=== PATIENT | male | born 1985 | race Caucasian/White ===

== ENCOUNTER 2024-03-19 09:37 | Outpatient (CLI) | payer OTHER, SELFPAY ==
--- NOTE | ~2024-03-19 | US_ITS ---
EXAMINATION: US abdomen limited DATE: 03/19/2024 10:19 INDICATION: Epigastric abdominal pain. TECHNIQUE: Multiple grayscale and Doppler ultrasound images of the abdomen were obtained. COMPARISON: None FINDINGS: The visualized portions of the head and body of the pancreas are normal. There is diffuse h epatic steatosis. There is normal flow in main portal vein. The gallbladder is normal in size. No gal lstones or gallbladder wall thickening. There is no sonographic Alanis's sign. The common duct is nor mal and measures 4 mm. IMPRESSION: 1. Diffuse hepatic steatosis. Reviewed, dictated and finalized at location A. LATORY ATTORNEY
== END 2024-03-19 09:38 | disposition home or self-care (01) ==
LOC: ANHIMG 09:41
DX: K76.0 Fatty (change of) liver, not elsewhere classified (principal)
CPT/HCPCS: 76705

== ENCOUNTER 2024-12-17 00:51 | Day surgery (SDC) | payer OTHER, SELFPAY ==
--- OUTSIDE RECORDS SUMMARY | 2024-11-03 07:15 | XMS_ITS | Continuity of Care Document ---
Author Organization [facility] Address [address] [place] [address] [place] [address] Phone Care Team Providers Care Procurement Intern Name Role Phone Didier Mendez MD Unavailable Unavailable Allergies, Adverse Reactions, Alerts Substance Reaction Status Criticality No Known Allergies Active No Inform ation Medications Medication Instructions Dosage Effective Dates (start - stop) Status Comments Crestor 10 mg tablet take 1 tablet by or al route every day 10 MG - Active Protonix 40 mg tablet,delayed release take 1 tablet by oral route every day 40 MG - Active Procedures Procedure Date OFFICE/OUTPATIENT VISIT, EST PREV VISIT, NEW, AGE 18-39 OFFICE/OUTPATIENT VISIT, NEW Advance Directives Directive Yes / No Effective Date File Name No Information Encounters Encounter Description Practice Location Reason(s) For Visit Diagnoses Date Provider Providers Copied on Encounter OFFICE/OUTPA TIENT VISIT, EST [facility], [address] [place], [id number], [place] tel:[phone] [facility] HLP (chief complaint) bili (chief complaint) GERD1 (chief complaint) Mixed hyperlipidemiaGERD w/o esophagitisDisorder of bilirubin metabolism, unspecified 5 Andrea Velásquez. [address] [facility] [address], [place], [place], [id number] , [place]. tel:[phone] PREV VISIT, NEW, AGE 18-39 [facility], [address], [place], [place], [id number], [place] tel:[phone] [facility] physical (chief complaint) Encounter for general adult medical exam w abnormal findingsGERD w/o esophagitis Andrea Velásquez. [address], [place], [place], [id number] , [place]. tel:[phone] Family History Family Member Type Diagnosis Age At Onset Father Problem Alive and well Mother Problem Hypertension Sister Problem Alive and well Payers Payer name Insurance type Covered libertarian ID Johann clemons(s) [facility] [id number] Social History Type Description Quantity Date Captured Comments Alcohol Use Details No Caffeine Use Details Unknown Tobacco Use Status Current non-smoker Smoking Status Never smoker Sex Male Vital Signs Date / Time: Height Weight BMI Pulse Rate Blood Pressure Temperature Respiratory Rate Body Surface Area Head Circumference BMI percentile Pulse Ox Inhaled Ox 12:32 PM 69.00 in 203.00 lbs 29.9 8 kg/m eter (2) 83 /min 110/64 mm[Hg] 97.9 F 16 /min Chief Complaint And Reason For Visit From encounter dated '11/03/2024 12:15'. HLP (chief complaint). Description: Pt has HLP. Pt has high TG and lipid. Pt is not on any diet. bili (chief complaint). Description: Pt has mildly high bili Pt denies any abd pain or jaundice. GERD1 (chief complaint). Description: Pt has chronic GERd and dysphagia Pt is on protonix and he feels slightly better Pt has EGD scheduled in December Pt denies any nausea, vomiting Plan Of Treatment Date Type Action Status Referral Ordered: ESOPHAGUS ENDOSCOPY ordered Appointment Carlitos Jones BOOKED History Of Present Illness Encounter Date Complaint History Of Prese nt Illness GERD1 Pt has chronic G ERd and dysphagia Pt is on protonix and he feels slightly better Pt has EGD scheduled in December Pt denies any nausea, vomiting bili Pt has mildly hi gh bili Pt denies any abd pain or jaundice. HLP Pt has HLP. Pt h as high TG and lipid. Pt is not on any diet. physical Pt needs annual physical Pt denies any dysphagia. pt denies any nausea, vomiting Pt denies any abd pain Pt notices food stuck in the middle of chest area after swallowing, especially pasta, spicy food or meat. pt has mild acidy feeling around stomach if he does not eat for a while. pt denies any diarrhea or constipation. Pt denies any weight loss. Pt denies any early satiety or loss of appetite. Pt denies any other complaints . pt denies any sore throat. Pt states that above symptoms has been occurring since two years ago. Instructions Date Instruction Additional Infor mation No Information Assessments Type Assessment Date assessment Mixed hyperlipidemia assessment GERD w/o esophagitis assessment Disorder of bilirubin metabolism , unspecified Mental Status Date Cognitive Assessment Orientation - [place] ed to time, place, person, situation.
[2024-12-08 09:48] VITALS: BMI 29.6
--- OUTSIDE RECORDS SUMMARY | 2024-12-17 00:53 | XMS_ITS | Clinical Summary ---
Author Organization [facility] e Address [address] [place] [address] Care Team Providers Care Structural Analysis Engineer Name Role Phone Suleman Huston MD Primary Care Provider [phone] Allergies No known active allergies Medications No known medications Active Problems No known active problems Immunizations Immunization Administration Dates Next Due (ADACEL/BOOSTRIX)(10 YR UP) TDAP VACCINE, 0.5ML, IM 03/27/2019 Family History Medical History Relation Name Comments No Known Problems Father No Known Problems Mother No Known Problems Sister Relation Name Status Comments Father Alive Mother Alive Sister Alive Social History Tobacco Use Types Packs/Day Years Used Date Smoking Tobacco: Never Smokeless Tobacco: Never Tobacco Cessation:Counseling Given: Not Answered Alcohol Use Standard Drinks/Week Comments Yes 0 (1 standard drink = 0.6 oz pur e alcohol) Rare Sex and Gender Information Value Date Recorded Sex Assigned at Not on file Legal 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 Gender Identity Not on file Sexual Orientation Not on file Last Filed Vital Signs Vital Sign Reading Time Taken Comments Blood Pressure 116/72 06/26/2022 1:08 PM CDT Pulse 104 06/26/2022 1:08 PM CDT Temperature 36.3 C (97.4 F) 06/26/2022 1:08 PM CDT Respiratory Rate 14 02/12/2022 2:57 PM FORMULA WEIGHER Oxygen Saturation 98% 06/26/2022 1:08 PM CDT Inhaled Oxygen Concentration - - Weight 93.9 kg (207 lb) 06/26/2022 1:08 PM CDT Height 177.8 cm (5' 10) 06/26/2022 1:08 PM CDT Body Mass Index 29.7 06/26/2022 1:08 PM CDT Plan of Treatment Health Maintenance Due Date Last Done Comments HEPATITIS B VACCINES (1 of 3 - 19+ 3-dose series) 2005 HPV VACCINES (1 - 3-dose SCDM series) 2013 Preventative Visit- Commercial 04/08/2024 01/11/2022 , 03/27/2019 INFLUENZA VACCINE (#1) 2024 05/15/2022 DTAP/TDAP/TD VACCINES (2 - Td or Tdap) 03/27/2029 Insurance [employer] [id number] Care Teams Structural Analysis Engineer Relationship Specialty [place] [id number] [facility] [address] [place] [id number] PCP - General Internal Medicine 01/12/22
[2024-12-17] MEDS: LACTATED RINGERS 1,000 ML 150 ML IV CONT (11:57)
[2024-12-17 11:59] VITALS: BP 121/87; PULSE 90; RESP 19; TEMP 36.5; O2SAT 99; BMI 30.6
--- NOTE | 2024-12-17 12:18 | WPDANESEPPF ---
Anes - Initial Pre Proc Eval Procedure: Operation Date: 12/17/24 12:30 Proposed Procedures p Esophagogastroduodenoscopy - Raji Manzanares MD Date/Time: 12/17/24 12:18 Surgeon: Raji Manzanares MD Pre Op Diagnosis: Gastro-esophageal reflux disease without esophagit Patient Data Age: 39 Gender: M Height: 1.75 m Weight: 94 kg Last Vital Signs Temp 36.5 C 12/17/24 11:59 Pulse 90 12/17/24 11:59 Resp 19 12/17/24 11:59 BP 121/87 12/17/24 11:59 Pulse Ox 99 12/17/24 11:59 O2 Del Method Room Air 12/17/24 11:59 Allergies Allergy/AdvReac Type Severity Reaction Status Date / Time No Known Allergies Allergy Verified 12/17/24 11:58 Home Medications ?Medication ?Instructions ?Recorded ?Confirmed ?Type pantoprazole 40 mg tablet,delayed 40 mg PO DAILY 12/08/24 12/17/24 History release rosuvastatin 10 mg tablet (Crestor) 10 mg PO DAILY 12/08/24 12/17/24 History Patient hx anesthesia problems: none Family hx anesthesia problems: none Results Review: All pre-operative results and documents have been reviewed as part of the pre-operative evaluation. [facility] Past Medical History Medical History (Updated 12/17/24 @ 12:53 by Raji Manzanares MD) Dysphagia GERD (gastroesophageal reflux disease) Hyperlipidemia Social History Social History Smoking status: Never smoker Alcohol intake: never Substance use: never Substance use type: does not use Living arrangements: with family Spiritual care concerns: No Anes - Eval Final PreProcedure Day of Procedure 12/17/24 12:18 Patient weight: obese Heart: regular rate and rhythm Lungs: clear to auscultation Airway: Mallampati scale class II Neurological: alert and oriented Last oral intake: >/= 8 hours ASA classification: II Emergent: no Anesthetic plan: proceed Anesthesia type and monitoring: general GIVS and standard monitoring Results Review: All pre-operative results and documents have been reviewed as part of the pre-operative evaluation. Informed Consent: The patient's anesthetic plan and its attendant risks and benefits were discussed with the patient/family/POA. Questions were solicited and answers provided to the satisfaction of the patient/family/POA.
--- NOTE | 2024-12-17 12:52 | PM.HPGS ---
History of Present Illness History of Present Illness Consent: Risks, benefits, and alternatives have been discussed and questions answered. Patient agrees to proceed with procedure. Chief complaint: Gastro-esophageal reflux disease without esophagit Narrative: Carlitos Jones is a 39 year old male here for first egd, gerd and dysphagia improved with ppi Review of Systems Review of Systems: All systems reviewed & are unremarkable except as noted in HPI and below PMFSH Past Medical History Medical History (Updated 12/17/24 @ 12:53 by Raji Manzanares MD) Dysphagia GERD (gastroesophageal reflux disease) Hyperlipidemia Social History Social History Smoking status: Never smoker Alcohol intake: never Substance use: never Substance use type: does not use Living arrangements: with family Spiritual care concerns: No Meds Home Medications and Allergies Home Medications ?Medication ?Instructions ?Recorded ?Confirmed ?Type pantoprazole 40 mg tablet,delayed 40 mg PO DAILY 12/08/24 12/17/24 History release rosuvastatin 10 mg tablet (Crestor) 10 mg PO DAILY 12/08/24 12/17/24 History Allergies Allergy/AdvReac Type Severity Reaction Status Date / Time No Known Allergies Allergy Verified 12/17/24 11:58 Vital Signs Vital Signs - 24 hr 12/17/24 11:59 Temperature 97.7 F Pulse Rate 90 Respiratory Rate 19 Blood Pressure 121/87 Pulse Oximetry 99 Oxygen Delivery Room Air Exam Const: General: comfortable and no acute distress HENMT: Face/Nose/Sinus: Normal nares present Eyes: General: appearance normal, both eyes and all related structures Neck: Neck: no JVD Resp: Auscultation: clear to auscultation bilaterally Cardio: Rate: regular rate Rhythm: regular rhythm GI: Inspection: non-distended GI Palp: Yes Soft to palpation Skin: General skin exam: normal color Neuro: General: gait normal Speech: normal speech Extrem: General: normal to inspection Psych: Mental Status: mental status grossly normal Assessment and Plan Assessment and plan (1) GERD (gastroesophageal reflux disease): Code(s): K21.9 - Gastro-esophageal reflux disease without esophagitis Status: Acute Assessment and Plan: egd (2) Dysphagia: Code(s): R13.10 - Dysphagia, unspecified Status: Acute
--- NOTE | 2024-12-17 13:02 | S_PTH ---
PATIENT: Carlitos Jones LOC: [facility]#:[id number] AGE/SX: 39/M ROOM: RE12/17/[address]: Raji Manzanares MD : 1985 BED: DIS: 12/17/2024 SPEC #: [id number] RECD: 12/17/24 13:44 STATUS: JENELLE REQ #: [id number] TERESE: 12/17/24 13:[address]: Raji Manzanares DEPT: [facility] Surgical RECD BY: Gricelda Cat ENTERED: 12/17/24 13:45 SP TYPE: Surgical OTHR DR: Didier Mendez MD Tissues: A - Esophageal Biopsy B - Gastric Biopsy Procedures: Hematoxylin and Eosin Stain Gross and Microscopic Level 4
[2024-12-17 13:03] VITALS: BP 110/76; PULSE 85; RESP 16; O2SAT 98
[2024-12-17 13:13] VITALS: BP 107/72; PULSE 88; RESP 18; O2SAT 95
[2024-12-17 13:23] VITALS: BP 111/76; PULSE 84; RESP 19; O2SAT 97
== END 2024-12-17 13:46 | disposition home or self-care (01) ==
PROVIDERS: PCP Emergency Medicine; Referring Provider Internal Medicine Gastroenterology; Visit Provider Internal Medicine Gastroenterology
PROC: 0DJ08ZZ Inspection of Upper Intestinal Tract, Via Natural or Artificial Opening Endoscopic (ICD-10-PCS; CPT 43239; principal; 2024-12-17 12:30)
DX: K22.2 Esophageal obstruction (principal); K21.9 Gastro-esophageal reflux disease without esophagitis; E78.5 Hyperlipidemia, unspecified
CPT/HCPCS: 43239; 43249; 88305; C1726; J2003; J2704; J7120